=== PATIENT | female | born 1985 | race Hispanic/Latino ===

== ENCOUNTER 2018-02-17 17:10 | Emergency (ER) | payer OTHER ==
--- NOTE | 2018-02-17 17:48 | ED PDOC ---
HPI: General Adult Time Seen by Provider: 02/17/18 17:39 Chief Complaint (Nursing): ENT Problem Chief Complaint (Provider): sore throat, fever History Per: Patient History/Exam Limitations: no limitations Onset/Duration Of Symptoms: Days (x1) Current Symptoms Are (Timing): Still Present Additional Complaint(s): 32 year old female currrently 18 weeks presents to the emergency department complaining of sore throat and mild nasal congestion, onset last night. Patient measured temp and Tmax was 99.1. Patient denies any abdominal pain and bleeding, no cough or dysuria. Patient states she came to ED as she was not sure what meds she can safely take while . Patient is tolerating liquids and solids. PMD: provider in [place] Past Medical History Reviewed: Historical Data, Nursing Documentation, Vital Signs Vital Signs: Last Vital Signs Temp 98.8 F 02/17/18 19:09 Pulse 87 02/17/18 19:09 Resp 15 02/17/18 19:09 BP 115/74 02/17/18 19:09 Pulse Ox 99 02/17/18 19:09 - Medical History PMH: No Chronic Diseases - Surgical History Other surgeries: deviated nasal septum repair - Family History Family History: States: No Known Family Hx - Living Arrangements Living Arrangements: With Family - Social History Current smoker - smoking cessation education provided: No Alcohol: None Drugs: Denies - Allergies Allergies/Adverse Reactions: Allergies Allergy/AdvReac Type Severity Reaction Status Date / Time No Known Allergies Allergy Verified 02/17/18 17:21 Review of Systems ROS Statement: Except As Marked, All Systems Reviewed And Found Negative Constitutional: Negative for: Fever ENT: Positive for: Nose Congestion, Throat Pain Cardiovascular: Negative for: Chest Pain Respiratory: Negative for: Cough Gastrointestinal: Negative for: Nausea, Vomiting, Abdominal Pain, Diarrhea Genitourinary Female: Negative for: Dysuria, Vaginal Discharge, Vaginal Bleeding Neurological: Negative for: Headache, Dizziness Physical Exam - Reviewed Nursing Documentation Reviewed: Yes Vital Signs Reviewed: Yes - Physical Exam Appears: Positive for: Well, Non-toxic, No Acute Distress Head Exam: Positive for: ATRAUMATIC, NORMAL INSPECTION, NORMOCEPHALIC Skin: Positive for: Normal Color. Negative for: Rash Eye Exam: Positive for: Normal appearance ENT: Positive for: Pharyngeal Erythema, Tonsillar Swelling. Negative for: Tonsillar Exudate Cardiovascular/Chest: Positive for: Regular Rate, Rhythm Respiratory: Positive for: Normal Breath Sounds. Negative for: Wheezing, Respiratory Distress Gastrointestinal/Abdominal: Positive for: Other (gravid nontender abdomen) Back: Negative for: L CVA Tenderness, R CVA Tenderness Extremity: Positive for: Normal ROM. Negative for: Pedal Edema Neurologic/Psych: Positive for: Alert, Oriented (x3) - ECG O2 Sat by Pulse Oximetry: 100 (RA) Pulse Ox Interpretation: Normal Medical Decision Making Medical Decision Making: Time: 17:40 Initial impression: 32 year old female with sore throat and fever Initial plan: --Tylenol --rapid strep Rapid strep negative, cultures sent. Advised tylenol prn and follow up with OB in 2-3 days. Scribe Attestation: Documented by Cande Lloyd, acting as a scribe for Anne Marie Spence PA-C. Provider Scribe Attestation: All medical record entries made by the Scribe were at my direction and personally dictated by me. I have reviewed the chart and agree that the record accurately reflects my personal performance of the history, physical exam, medical decision making, and the department course for this patient. I have also personally directed, reviewed, and agree with the discharge instructions and disposition. Disposition - Clinical Impression Clinical Impression: Sore throat - Patient ED Disposition Is Patient to be Admitted: No Counseled Patient/Family Regarding: Studies Performed, Diagnosis, Need For Followup - Disposition [facility] Disposition: Routine/Home Disposition Time: 19:13 Condition: IMPROVED Additional Instructions: Take two 325 mg Tylenol tablets every 4-6 hours as needed for sore throat. Drink plenty of fluids and get plenty of rest. Follow-up with your OB in 2-3 days or return to ED if worse at any time. Instructions: Sore Throat in Adults, Viral Pharyngitis Forms: [facility] ([place]ian)
[2018-02-17 19:10] VITALS: BP 115/74; PULSE 87; RESP 15; TEMP 98.8
[2018-02-17 19:22] VITALS: O2SAT 100
== END 2018-02-17 19:47 | disposition home or self-care (01) ==
LOC: H.ER 17:10
DX: J02.9 Acute pharyngitis, unspecified (principal); O99.512 Diseases of the respiratory system complicating pregnancy, second trimester; Z3A.18 18 weeks gestation of pregnancy